=== PATIENT | male | born 1995 | race African-American/Black ===

== ENCOUNTER 2019-07-20 19:20 | Emergency (ER) | payer OTHER ==
[~2019-07-20] VITALS: Ht 162.6 cm; Wt 54.5 kg
[2019-07-20] MEDS ORDERED: MELO15TA28 PO (19:24)
[2019-07-20] MEDS ORDERED: APAP325T4 PO (19:35)
[2019-07-20] MEDS ORDERED: KETOROLAC TROMETHAMINE 10 MG TAB PO ONE (20:15)
[2019-07-20] MEDS ORDERED: CYCLOBENZAPRINE 5MG TABLET PO ONE (20:15)
--- NOTE | 2019-07-20 21:05 | REPVR ---
PROCEDURE INFORMATION: Exam: CT Lumbar Spine Without Contrast Exam date and time: 07/20/2019 8:55 PM Age: 24 years old Clinical indication: Low back pain; Additional info: Pain/? L3 FX on x-ray TECHNIQUE: Imaging protocol: Computed tomography images of the lumbar spine without contrast. Radiation optimization: All CT scans at this facility use at least one of these dose optimization techniques: automated exposure control; mA and/or kV adjustment per patient size (includes targeted exams where dose is matched to clinical indication); or iterative reconstruction. COMPARISON: [facility] Sp[facility]. Lumbosacral, complete 07/20/2019 8:28 PM FINDINGS: Vertebrae: Anterior wedge compression deformity at L3 with a ring apophysis. Finding most likely developmental although changes related to acute trauma should be excluded clinically. If there is a strong index of suspicion for acute trauma to the spine further evaluation with MRI suggested. Schmorl's nodes demonstrated at L1, L3 and L4. L1-L2: No significant disc protrusion. No severe spinal canal stenosis. No significant neural foraminal narrowing. L2-L3: No significant disc protrusion. No spinal canal stenosis. No neural foraminal narrowing. L3-L4: No significant disc protrusion. No severe spinal canal stenosis. No significant neural foraminal narrowing. L4-L5: No significant disc protrusion. No severe spinal canal stenosis. No significant neural foraminal narrowing. L5-S1: No significant disc protrusion. No severe spinal canal stenosis. No significant neural foraminal narrowing. Soft tissues: Unremarkable. IMPRESSION: 1. Anterior wedge compression deformity at L3 with a ring apophysis. Finding most likely developmental although changes related to acute trauma should be excluded clinically. If there is a strong index of suspicion for acute trauma to the spine further evaluation with MRI suggested. 2. Otherwise unremarkable. Electronically signed by: Eyal Laird On 07/20/2019 21:05:25 PM
[2019-07-20] MEDS ORDERED: CYCL5TAB PO (21:18)
[2019-07-20 21:31] VITALS: BP 121/67
--- NOTE | 2019-07-21 01:26 | REP ---
Clinical: Back pain . Technique: AP, lateral, bilateral oblique, and coned-down views. Findings: Alignment and lordosis is maintained. The vertebral bodies including transverse process and spinous processes are intact and normal. There is no evidence for acute fracture / compression injury or subluxation. No evidence for spondylolysis or spondylolisthesis. No significant degenerative change is noted. Impression: Normal lumbosacral spine radiograph series. Electronically Signed by Albert Hastings MD 07/21/2019 01:17 A
--- NOTE | 2019-07-21 13:33 | ED PDOC ---
Post-Departure Follow-Up ct leydi mae faxed to manuel hernandez for fu Rasheeda Feng MD Jul 21, 2019 13:33
== END 2019-07-20 21:31 | disposition home or self-care (01) ==
LOC: M ED 19:20
DX: M51.16 Intervertebral disc disorders with radiculopathy, lumbar region (principal); F17.200 Nicotine dependence, unspecified, uncomplicated

== ENCOUNTER 2019-08-29 22:20 | Emergency (ER) | payer OTHER ==
[~2019-08-29] VITALS: Ht 165.1 cm; Wt 55.1 kg
[~2019-08-29 22:20] MED LIST: APAP325T4 PO; CYCL5TAB PO; MELO15TA28 PO
[2019-08-29 22:35] VITALS: BP 134/82
[2019-08-29] MEDS ORDERED: IBUPROFEN 600MG TAB PO ONE (23:45)
[2019-08-30] MEDS ORDERED: METH1TAB40 PO (01:36)
[2019-08-30] MEDS ORDERED: ASPE4PAD TOP (01:36)
[2019-08-30] MEDS ORDERED: methocarbamoL 500 MG TAB PO ONE (01:45)
[2019-08-30] MEDS ORDERED: LIDOCAINE 5% (LIDODERM) PATCH TD ONE (01:45)
[2019-08-30] MEDS ORDERED: **NOTE PATIENT COMMENT** MISC XX SCH (21:00)
== END 2019-08-30 01:54 | disposition home or self-care (01) ==
LOC: M ED 22:20
DX: M54.5 Low back pain (principal)

== ENCOUNTER 2020-04-15 11:53 | Emergency (ER) | payer OTHER ==
[~2020-04-15] VITALS: Ht 165.1 cm; Wt 55.9 kg
[~2020-04-15 11:53] MED LIST changes: +ASPE4PAD TOP; +METH-1164 PO
[2020-04-15 11:54] VITALS: BP 130/74
[2020-04-15] MEDS ORDERED: TIZA4CAP PO (11:59)
[2020-04-15] MEDS ORDERED: KETOROLAC 60MG 2ML VIAL IM ONE (12:30)
[2020-04-15] MEDS ORDERED: KETO10TAB PO (12:30)
== END 2020-04-15 12:53 | disposition home or self-care (01) ==
LOC: M ED 11:53
DX: S29.011A Strain of muscle and tendon of front wall of thorax, initial encounter (principal); X58.XXXA Exposure to other specified factors, initial encounter; Y92.89 Other specified places as the place of occurrence of the external cause; F17.210 Nicotine dependence, cigarettes, uncomplicated
CPT/HCPCS: 96372; 99283; J1885